=== PATIENT | female | born 1945 | race Two or more races ===

== ENCOUNTER 2024-10-13 08:53 | Inpatient (IN) | payer OTHER ==
[~2024-10-13] VITALS: Ht 167.6 cm; Wt 105.6 kg
[~2024-10-13 08:53] MED LIST: ATEN-60 OR; GLIP10TA9 OR; LEVEMIR SC; METF-372 OR; PIOG15TA38 OR; SIMV40TA18 OR; TIMOLOL; TRAVATAN; [UNRECOGNIZED DRUG - OTHER]
--- NOTE | 2024-10-13 09:32 | ED.PDOC ---
GI ASSESSMENT HPI Comments 79 y/o F, SHEN presents to the ED for CC of rectal bleeding. Patient states, that she has been experiencing rectal bleeding x1day. Patient relays, that she had [id number] of diarrhea with specs of blood yesterday (10/12/24). Patient comments, that this morning sanitary pad was soaked in bright red blood; believes to be from rectum. Patient endorses, using excessive strain when having a bowel movement. Patient denies fever, chills, melena, abdominal pain, nausea, or vomiting. No other symptoms or modifying factors present at this time. Chief Complaint: GI Bleed Time Seen by MD: 09:20 Primary Care Provider: Anai WARD Reviewed Notes: Nurses Notes, Medications, Allergies Allergies: Coded Allergies: NO KNOWN ALLERGIES (Unverified , 07/29/10) Home Meds Reported Medications Pioglitazone Hydrochloride (Actos) 15 Mg Tab, 15 MG OR DA 02/04/11 Insulin Detemir (Levemir) Inj, 20 SC HS 07/29/10 Insulin Detemir (Levemir) Inj, 10 UNITS SC QA 07/29/10 [Travatan] No Conflict Check, 1 APPLIC BID 07/29/10 [Timolol] No Conflict Check, 1 APPLIC BID 07/29/10 Atenolol (Atenolol) 25 Mg Tab, 25 MG OR QA 07/29/10 Glipizide (Glipizide) 10 Mg Tab, 10 MG OR BID 07/29/10 [Bemazepril] No Conflict Check, 40 MG QA 07/29/10 Simvastatin (Simvastatin) 40 Mg Tab, 40 MG OR HS 07/29/10 Metformin Hydrochloride (Metformin Hcl) 1,000 Mg Tab, 1000 MG OR BID 07/29/10 Information Source: Patient, Emergency Med Personnel Mode of Arrival: EMS Timing: Hours Duration: Since onset Prehospital treatment: None Quality: None Vomitus: None Stool: Watery Severity: Moderate Recent: None Recent Hx of: None Pain Location: None Modifying Factors: Nothing Associated sign and symptoms: Diarrhea, Blood in Stool Past Medical History PAST MEDICAL HISTORY: Denies Surgical History: Denies all surgeries COMMISSARY CLERK History: Unknown Family History Family History: Unknown Social History Smoker: Non-Smoker Alcohol: Denies ETOH Use Drugs: Denies Drug Use Lives In: Home Constitutional: denies: chills, diaphoresis, fatigue, fever, malaise, sweats, weakness, others EENTM: denies: blurred vision, double vision, ear bleeding, ear discharge, ear drainage, ear pain, ear ringing, eye pain, eye redness, hearing loss, mouth pain, mouth swelling, nasal discharge, nose bleeding, nose congestion, nose pain, photophobia, tearing, throat pain, throat swelling, voice changes, others Respiratory: denies: cough, hemoptysis, orthopnea, SOB at rest, shortness of breath, SOB with excertion, stridor, wheezing, others Cardiovascular: denies: chest pain, dizzy spells, diaphoresis, Dyspnea on exertion, edema, irregular heart beat, left arm pain, lightheadedness, palpitations, PND, syncope, others Gastrointestinal: reports: blood streaked bowels; denies: abdomen distended, abdominal pain, constipated, diarrhea, dysphagia, difficulty swallowing, hematemesis, melena, nausea, poor appetite, poor fluid intake, rectal bleeding, rectal pain, vomiting, others Genitourinary: denies: abnormal vagina bleeding, burning, dyspareunia, dysuria, flank pain, frequency, hematuria, incontinence, pain, , vagina discharge, urgency, others Neurological: denies: dizziness, fainting, headache, left sided numbness, left sided weakness, numbness, paresthesia, pre-existing deficit, right sided numbness, right sided weakness, seizure, speech problems, tingling, tremors, weakness, others Musculoskeletal: reports: back pain; denies: gout, joint pain, joint swelling, muscle pain, muscle stiffness, neck pain, others Integumetry: denies: bruises, change in color, change in hair/nails, dryness, laceration, lesions, lumps, rash, wounds, others Allergic/Immunocompromised: denies: Difficulty Healing, Frequent Infections, Hives, Itching, others Hematologic/Lymphatic: denies: anemia, blood clots, easy bleeding, easy bruising, swollen glands, others Endocrine: denies: excessive hunger, excessive sweating, excessive thirst, excessive urination, flushing, intolerance to cold, intolerance to heat, unexplained weight gain, unexplained weight loss, others Psychiatric: denies: anxiety, bipolar disorder, depression, hopeless, panic disorder, schizophrenia, sleepless, suicidal, others All Other Systems: Reviewed and Negative Physical Exam General Appearance: No Apparent Distress, Obese HEENT: Normal ENT Inspection, Pharynx Normal Neck: Full Range of Motion, Non-Tender, Normal, Normal Inspection Respiratory: Chest Non-Tender, Lungs Clear, No Accessory Muscle Use, No Respir atory Distress, Normal Breath Sounds Cardiovascular: No Edema, No Murmur, No Gallop, Normal Peripheral Pulses, Regular Rate/Rhythm Breast Exam: Deferred Gastrointestinal: No Organomegaly, Non Tender, No Pulsatile Mass, Normal Bowel Sounds, Soft Genitalia: Deferred Pelvic: Deferred Rectal: Deferred Extremities: Normal inspection Musculoskeletal : Apperance: Normal Neurologic: Alert, No Motor Deficits, Normal Affect, Normal Mood, No Sensory Deficits Cerebellar Function: Normal Reflexes: Normal Skin: Dry, Normal Color, Warm Lymphatic: No Adenopathy EKG EKG : Pulse Rate (adult): 98 Antlers: Normal Cardiac Rhythm: ST Block: None Hypertrophy: None ST: Normal Was a procedure done? Was a procedure done?: No GI differential Dx Differential Diagnosis: Bowel Obstruction, Constipation, Gastritis/PUD, Gastroenteritis, GI hemorrhage X-Ray, Labs, Meds, VS Vital Signs Date Time Temp Pulse Resp B/P (MAP) Pulse Ox O2 Delivery O2 Flow Rate FiO2 10/13/24 10:29 97.8 101 20 159/52 (87) 100 97.8 10/13/24 10:27 101 20 100 Room Air* 0 21 10/13/24 09:34 98 10/13/24 09:03 98.3 105 18 114/67 (83) 96 98.3 10/13/24 08:56 98 Lab Test 10/13/24 09:57 Range/Units White Blood Count 11.9 H 4.4-10.8 10^3/uL Red Blood Count 4.50 4.0-5.20 10^6/uL Hemoglobin 12.7 12.2-16.2 g/dL Hematocrit 37.8 36.0-46.0 % Mean Corpuscular Volume 84.0 80.0-100.0 fL Mean Corpuscular Hemoglobin 28.1 28.0-32.0 pg Mean Corpuscular Hemoglobin Concent 33.5 32.0-36.0 g/dL Red Cell Distribution Width 14.4 H 11.8-14.3 % Platelet Count 241 140-450 10^3/uL Mean Platelet Volume 8.7 6.9-10.8 fL Neutrophils (%) (Auto) 83.2 H 37.0-80.0 % Lymphocytes (%) (Auto) 10.4 10.0-50.0 % Monocytes (%) (Auto) 5.7 0.0-12.0 % Eosinophils (%) (Auto) 0.4 0.0-7.0 % Basophils (%) (Auto) 0.3 0.0-2.0 % Neutrophils # (Auto) 9.9 H 1.6-8.6 10 ^3/uL Lymphocytes # (Auto) 1.2 0.4-5.4 10 ^3/uL Monocytes # (Auto) 0.7 0-1.3 10 ^3/uL Eosinophils # (Auto) 0.1 0-0.8 10 ^3/uL Basophils # (Auto) 0 0-0.2 10 ^3/uL Nucleated Red Blood Cells 0.1 % Prothrombin Time 10.8 9.3-11.8 sec Prothrombin Time INR 1.02 0.9-1.15 Activated Partial Thromboplast Time 24.4 L 24.5-34.5 SEC Sodium Level 143 136-145 mmol/L Potassium Level 4.0 3.5-5.1 mmol/L Chloride Level 109 H 98-107 mmol/L Carbon Dioxide Level 27 20-31 mmol/L Anion Gap 7 5-15 Blood Urea Nitrogen 27 H 9-23 mg/dL Creatinine 1.55 H 0.550-1.02 mg/dL Glomerular Filtration Rate Calc 34 >90 mL/min BUN/Creatinine Ratio 17.4 10.0-20.0 Serum Glucose 177 H 74-106 mg/dL Calcium Level 9.6 8.7-10.4 mg/dL Total Bilirubin 0.7 0.2-1.0 mg/dL Aspartate Amino Transferase (AST) 15 13-40 U/L Alanine Aminotransferase (ALT) Pending Alkaline Phosphatase 128 H 46-116 U/L Total Protein 6.8 5.7-8.2 g/dL Albumin 4.2 3.2-4.8 g/dL X-Ray, Labs, Meds, VS Comment This 79-year-old female presents to emergency room secondary to rectal bleeding. Here, the patient was noted to have renal failure.. Considering the copious amounts of blood she describes x1 day and her renal failure, I will admit the patient for further workup and management. Time of 1ST Reevaluation: 09:50 Reevaluation 1ST: Unchanged Patient Education/Counseling: Diagnosis, Treatment Family Education/Counseling: No Family Present Departure 1 Departure Time of Disposition: 11:00 Impression: Primary Impression: Rectal bleeding Additional Impressions: Dehydration Renal failure Disposition: ADMITTED INPATIENT Condition: Serious Critical Care Note Critical Care Time?: No Stability Stability form required: No Heart Score Heart Score: Heart Score Response (Comments) Value History N/A 0 EKG N/A 0 Age N/A 0 Risk Factors N/A 0 Troponin N/A 0 Total 0 I personally scribed for LIVE CLEMENTS MD ([email or web address]) on 10/13/24 at 09:32. Electronically submitted by Leslie Kenny ([email or web address]). I personally scribed for LIVE CLEMENTS MD ([email or web address]) on 10/13/24 at 09:34. Electronically submitted by Leslie Kenny ([email or web address]). LIVE CLEMENTS MD Oct 13, 2024 09:32
[2024-10-13 10:11] LABS: Basophils # (auto) 0 10 ^3/uL (0-0.2); Basophils % (auto) 0.3 % (0.0-2.0); Eosinophils # (auto) 0.1 10 ^3/uL (0-0.8); Eosinophils % (auto) 0.4 % (0.0-7.0); Hematocrit 37.8 % (36.0-46.0); Hemoglobin 12.7 g/dL (12.2-16.2); Lymphocytes # (auto) 1.2 10 ^3/uL (0.4-5.4); Lymphocytes % (auto) 10.4 % (10.0-50.0); Mean Corpuscular Hemoglobin 28.1 pg (28.0-32.0); Mean Corpuscular Hgb Conc. 33.5 g/dL (32.0-36.0); Monocytes # (auto) 0.7 10 ^3/uL (0-1.3); Monocytes % (auto) 5.7 % (0.0-12.0); Neutrophils # (auto) 9.9 10 ^3/uL (1.6-8.6); Neutrophils % (auto) 83.2 % (37.0-80.0); Nucleated Red Blood Cells % 0.1 %; Platelet Count (auto) 241 10^3/uL (140-450); Red Cell Distribution Width 14.4 % (11.8-14.3); White Blood Cell 11.9 10^3/uL (4.4-10.8)
[2024-10-13 10:27] VITALS: PULSE 101; RESP 20; O2SAT 100
[2024-10-13 10:28] LABS: INR 1.02 (0.9-1.15); Partial Thromboplastin Time 24.4 SEC (24.5-34.5); Prothrombin Time 10.8 sec (9.3-11.8)
[2024-10-13 10:38] LABS: Albumin 4.2 g/dL (3.2-4.8); Anion Gap 7 (5-15); Aspartate Aminotransferase 15 U/L (13-40); BUN/Creatinine Ratio 17.4 (10.0-20.0); Bilirubin, Total 0.7 mg/dL (0.2-1.0); Calcium 9.6 mg/dL (8.7-10.4); Carbon Dioxide 27 mmol/L (20-31); Sodium 143 mmol/L (136-145); Total Protein 6.8 g/dL (5.7-8.2)
[2024-10-13 10:48] LABS: Alkaline Phosphatase 128 U/L (46-116); Blood Urea Nitrogen 27 mg/dL (9-23); Chloride 109 mmol/L (98-107); Glucose 177 mg/dL (74-106)
[2024-10-13 11:16] LABS: Alanine Aminotransferase 15 U/L (7-40)
[2024-10-13 13:40] VITALS: RESP 18
[2024-10-13] MEDS: MORPHINE SULFATE 4 MG/ML SYR/VIAL IV ONE (15:12)
[2024-10-13] MEDS: ONDANSETRON HCL 4 MG/2 ML VIAL IV ONE (15:12)
--- NOTE | 2024-10-13 17:01 | DVH ---
Exam: CT CT AB PEL WO CON-NO ORAL OR IV History: abd pain Comparison Study: None TECHNIQUE: Multidetector CT of the abdomen and pelvis was performed from lung bases to pubic symphysi s. Imaging was performed without IV contrast. Axial, coronal, and sagittal multiplanar reformats were obtained from the axial data set by the technologist. RADIATION DOSE: DLP 929.71 mGy.cm; CTDI vol 20.2 mGy. Findings: Lungs: The lung bases are clear. Heart: No cardiomegaly or pericardial effusion. Liver: Unremarkable. Gallbladder: Cholelithiasis without evidence of acute cholecystitis. Spleen: Unremarkable Pancreas: Unremarkable Adrenals: Unremarkable Kidneys: Nonobstructive left nephrolithiasis. GI tract: Diverticulosis without evidence of acute diverticulitis. Moderate wall thickening of the de scending colon with mild inflammatory changes. : Unremarkable. Vasculature: Moderate aortoiliac atherosclerosis. Lymphadenopathy: Absent Peritoneum: No ascites Musculoskeletal: Moderate multilevel degenerative changes of the thoracolumbar spine. L4/L5 anterior and posterior spinal fusion. Soft tissues: Unremarkable Impression: 1. Moderate wall thickening of the descending colon with mild inflammatory changes. Correlate for an infectious/inflammatory colitis. 2. Diverticulosis without evidence acute diverticulitis. 3. Cholelithiasis without evidence of acute cholecystitis.
[2024-10-13] MEDS ORDERED: DEXTROSE (50%) 50ML SYRG IV PRN (18:00)
[2024-10-13] MEDS ORDERED: NITROGLYCERIN 0.4 MG SL TAB SL PRN (18:00)
[2024-10-13] MEDS ORDERED: ACETAMINOPHEN 325 MG TAB PO PRN (18:00)
[2024-10-13] MEDS ORDERED: ONDANSETRON HCL 4 MG/2 ML VIAL IV PRN (18:00)
[2024-10-13] MEDS ORDERED: MORPHINE SULFATE INJ 2 MG/ml SYRG IV PRN (18:00)
--- NOTE | 2024-10-13 18:04 | DVHHP2 ---
History of Present Illness Reason for Visit: Rectal bleeding History of Present Illness 79-year-old female with a history of diabetes: Hypertension: Dyslipidemia comes with a chief complaint of rectal bleeding of bright red blood for 2 days There is no associated abdominal pain No nausea or vomiting or diarrhea Patient is usually constipated, she was straining for a bowel movement 2 days ago and that is when the bleeding started When I asked her about her home situation, the patient has started crying and said that since her less than a year ago she has been living by herself and she has not been active and has not been eating very well because she does not cook for herself much and that she has been constipated since that time, She had 2 colonoscopies before, last 1 about 4 or 5 years ago Cardiovascular: HTN, hyperipidemia GI: Constipation, Diverticulosis Psych: Depression Endocrine: Diabetes Review of Systems Gastrointestinal: Constipation, Hematochezia Allergies: Coded Allergies: NO KNOWN ALLERGIES (Unverified , 07/29/10) Medications Current Medications Medications Dose Ordered Sig/Miah Route Start Time Stop Time Status Last Admin Dose Admin Nitroglycerin 0.4 mg Q5MINP PRN SL 10/13/24 18:00 UNV Morphine Sulfate 2 mg Q30M PRN IV 10/13/24 18:00 UNV Ondansetron HCl 4 mg Q4HPRN PRN IV 10/13/24 18:00 UNV Acetaminophen 650 mg Q6HP PRN PO 10/13/24 18:00 UNV Pantoprazole Sodium 40 mg BID IV 10/13/24 22:00 UNV Exam Vital Signs Vital Signs Date Time Temp Pulse Resp B/P (MAP) Pulse Ox O2 Delivery O2 Flow Rate FiO2 10/13/24 16:00 114 12 120/76 10/13/24 16:00 96 10/13/24 13:50 97.7 97.7 10/13/24 13:40 Room Air* 0 21 General Appearance: Alert, Oriented X3, Cooperative, No acute distress Respiratory: Clear to auscultation, Normal air movement Cardiovascular: Regular rate, Normal S1, Normal S2, No murmurs Abdominal: Normal bowel sounds, Soft, No tenderness, No hepatospenomegaly Extremities: No edema Labs/Xrays Labs Test 10/13/24 09:57 Range/Units White Blood Count 11.9 H 4.4-10.8 10^3/uL Red Blood Count 4.50 4.0-5.20 10^6/uL Hemoglobin 12.7 12.2-16.2 g/dL Hematocrit 37.8 36.0-46.0 % Mean Corpuscular Volume 84.0 80.0-100.0 fL Mean Corpuscular Hemoglobin 28.1 28.0-32.0 pg Mean Corpuscular Hemoglobin Concent 33.5 32.0-36.0 g/dL Red Cell Distribution Width 14.4 H 11.8-14.3 % Platelet Count 241 140-450 10^3/uL Mean Platelet Volume 8.7 6.9-10.8 fL Neutrophils (%) (Auto) 83.2 H 37.0-80.0 % Lymphocytes (%) (Auto) 10.4 10.0-50.0 % Monocytes (%) (Auto) 5.7 0.0-12.0 % Eosinophils (%) (Auto) 0.4 0.0-7.0 % Basophils (%) (Auto) 0.3 0.0-2.0 % Neutrophils # (Auto) 9.9 H 1.6-8.6 10 ^3/uL Lymphocytes # (Auto) 1.2 0.4-5.4 10 ^3/uL Monocytes # (Auto) 0.7 0-1.3 10 ^3/uL Eosinophils # (Auto) 0.1 0-0.8 10 ^3/uL Basophils # (Auto) 0 0-0.2 10 ^3/uL Nucleated Red Blood Cells 0.1 % Prothrombin Time 10.8 9.3-11.8 sec Prothrombin Time INR 1.02 0.9-1.15 Activated Partial Thromboplast Time 24.4 L 24.5-34.5 SEC Sodium Level 143 136-145 mmol/L Potassium Level 4.0 3.5-5.1 mmol/L Chloride Level 109 H 98-107 mmol/L Carbon Dioxide Level 27 20-31 mmol/L Anion Gap 7 5-15 Blood Urea Nitrogen 27 H 9-23 mg/dL Creatinine 1.55 H 0.550-1.02 mg/dL Glomerular Filtration Rate Calc 34 >90 mL/min BUN/Creatinine Ratio 17.4 10.0-20.0 Serum Glucose 177 H 74-106 mg/dL Calcium Level 9.6 8.7-10.4 mg/dL Total Bilirubin 0.7 0.2-1.0 mg/dL Aspartate Amino Transferase (AST) 15 13-40 U/L Alanine Aminotransferase (ALT) 15 7-40 U/L Alkaline Phosphatase 128 H 46-116 U/L Total Protein 6.8 5.7-8.2 g/dL Albumin 4.2 3.2-4.8 g/dL Assessment/Plan Assessment/Plan Rectal bleeding Acute colitis Diverticulosis with no diverticulitis Gallstones with no acute cholecystitis Hypertension Mixed hyperlipidemia Type 2 diabetes Depression 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 Dehydration Plan Admit to [facility] Clear liquid diet IV fluids IV antibiotics with Rocephin and Flagyl Get a stool sample for occult blood and C diff Accu-Cheks p.r.n. GI consult IV Protonix Monitor closely The rest of the management will depend on hospital course Full code Plan discussed with: Patient My Orders Orders - JOSE ADAN MD Procedure Category Date Status Time Admit ADMIT 10/13/24 Transmitted 17:52 Nitroglycerin [facility] 10/13/24 Logged Sublingual (Ntrostat 18:00 Morphine Sulfate [facility]A 10/13/24 Logged Injection 18:00 Stat Ekg For Chest [facility] 10/13/24 In Process Pain 17:52 Notify Of Changes [facility] 10/13/24 In Process From Base 17:52 Management Supervisor For [facility] 10/13/24 In Process 24 Hours 17:52 Emergency Dysrhythmia [facility] 10/13/24 In Process Protocol 17:52 Rhythm Strips Once [facility] 10/13/24 In Process Every Shift 17:52 Oxygen By Nasal RT 10/13/24 Transmitted Cannula 17:52 Clear Liq Diet DIET 10/13/24 Transmitted Dinner Sodium Chloride 0.9% PHA 10/13/24 Logged 18:00 Complete Blood Count LAB 10/14/24 Verified 04:00 Comprehensive LAB 10/14/24 Verified Metabolic Panel 04:00 Magnesium LAB 10/14/24 Verified 04:00 Lipase LAB 10/14/24 Verified 04:00 PTPTT LAB 10/14/24 Verified 04:00 Stool Occult Blood LAB 10/13/24 Logged 17:53 Thyroid Stimulating LAB 10/14/24 Verified Hormone 04:00 Urinalysis LAB 10/13/24 Logged 17:53 * Gi Dvh Inspector Experimental Assembly CONS 3/27/25 Transmitted 17:54 Clostridium Difficile ANJANA 10/13/24 Logged Toxin 17:54 Ondansetron Hcl PHA 10/13/24 Logged (Zofran) 18:00 Acetaminophen Tablet PHA 10/13/24 Logged (Tylenol Tablet) 18:00 Pantoprazole PHA 10/13/24 Logged (Protonix) 22:00 Ceftriaxone 1gm/50ml PHA 10/14/24 Logged D5w (Rocephin) 09:00 Ceftriaxone 1gm/50ml PHA 10/13/24 Logged D5w (Rocephin) 18:00 Metronidazole PHA 10/13/24 Logged 500mg/100ml (Flagyl 22:00 Glucose Blood PHA 10/13/24 Verified (Accu-Chek Comfort 22:00 Mild Sliding Scale PHA 10/13/24 Verified 22:00 Dextrose 50% Syringe PHA 10/13/24 Verified 18:00 Date of Service: Oct 13, 2024 Billing Provider: JOSE ADAN MD Common Visit Codes: NOT BILLABLE JOSE ADAN MD Oct 13, 2024 18:04
[2024-10-13] MEDS: SODIUM CHLORIDE 0.9% 1,000 ML IV ONE (18:35)
[2024-10-13] MEDS: cefTRIAXone 1GM/50ML D5W 50 ML IV ONE (18:40)
[2024-10-13 19:55] VITALS: PULSE 83; RESP 16; O2SAT 96
[2024-10-13] MEDS: PANTOPRAZOLE 40 MG/10 ML VIAL INJ IV SCH (20:58)
[2024-10-13] MEDS: metroNIDAZOLE 500MG/100ML 100 ML IV SCH (20:58)
[2024-10-13] MEDS: MORPHINE SULFATE INJ 2 MG/ml SYRG IV PRN (21:03)
[2024-10-13] MEDS: ACCU-CHEK COMFORT CURVE STRIP VI SCH (21:59)
[2024-10-13] MEDS: InsuLIN REG 1unit/0.01ml Soln (100units/ml) SC SCH (21:59)
[2024-10-13 22:35] VITALS: BP 140/58; PULSE 85; RESP 19; TEMP 97.7; O2SAT 98
[2024-10-13 23:17] LABS: Urine Bacteria None Seen /hpf (None Seen)
[2024-10-13 23:18] VITALS: BP 140/58; PULSE 85; RESP 19; TEMP 97.7; O2SAT 98
[2024-10-14] VITALS (7 sets, daily range): BP systolic 117–142; BP diastolic 46–61; PULSE 74–115; RESP 16–20; TEMP 97.3–98; O2SAT 89–98
[2024-10-14 00:29] LABS: Urine Blood Negative /uL (Negative); Urine Clarity Turbid (Clear); Urine Color Yellow (Yellow); Urine Mucus FEW (None Seen); Urine Protein, UAD TRACE (Negative); Urine Specific Gravity 1.022 (1.001-1.035); Urine Squamous Epithelial Cell MOD /hpf (<5); Urine Urobilinogen Normal (Negative); Urine WBC 4 /HPF (0-5); Urine pH 5.5 (5.0-9.0)
[2024-10-14] MEDS ORDERED: FURO40TA4 PO (00:51)
[2024-10-14] MEDS ORDERED: ATOR40TA52 PO (00:51)
[2024-10-14] MEDS ORDERED: LEVEMIR SC (00:51)
[2024-10-14] MEDS ORDERED: LATA0.008 EACHEYE (00:51)
[2024-10-14] MEDS ORDERED: AMLO1TAB22 PO (00:51)
[2024-10-14] MEDS ORDERED: CHOL20007 OR (00:51)
[2024-10-14] MEDS ORDERED: BENA-36 PO (00:51)
[2024-10-14] MEDS ORDERED: ALL100T PO (00:51)
[2024-10-14 05:36] LABS: Basophils # (auto) 0 10 ^3/uL (0-0.2); Basophils % (auto) 0.4 % (0.0-2.0); Eosinophils # (auto) 0.1 10 ^3/uL (0-0.8); Eosinophils % (auto) 1.5 % (0.0-7.0); Hematocrit 37.3 % (36.0-46.0); Lymphocytes # (auto) 1.5 10 ^3/uL (0.4-5.4); Lymphocytes % (auto) 16.4 % (10.0-50.0); Mean Corpuscular Hemoglobin 27.4 pg (28.0-32.0); Mean Corpuscular Hgb Conc. 32.1 g/dL (32.0-36.0); Mean Corpuscular Volume 85.3 fL (80.0-100.0); Monocytes # (auto) 0.6 10 ^3/uL (0-1.3); Monocytes % (auto) 6.7 % (0.0-12.0); Neutrophils # (auto) 6.7 10 ^3/uL (1.6-8.6); Nucleated Red Blood Cells % 0.1 %; Platelet Count (auto) 208 10^3/uL (140-450); Red Blood Cells 4.37 10^6/uL (4.0-5.20); Red Cell Distribution Width 14.4 % (11.8-14.3); White Blood Cell 8.9 10^3/uL (4.4-10.8)
[2024-10-14 06:03] LABS: Alanine Aminotransferase 13 U/L (7-40); Albumin 3.8 g/dL (3.2-4.8); Alkaline Phosphatase 108 U/L (46-116); Anion Gap 7 (5-15); Aspartate Aminotransferase 19 U/L (13-40); BUN/Creatinine Ratio 19.1 (10.0-20.0); Blood Urea Nitrogen 21 mg/dL (9-23); Calcium 9.1 mg/dL (8.7-10.4); Carbon Dioxide 29 mmol/L (20-31); Glucose 105 mg/dL (74-106); Lipase 46 U/L (12-53); Magnesium 1.8 mg/dL (1.6-2.6); Sodium 145 mmol/L (136-145); Total Protein 6.3 g/dL (5.7-8.2)
[2024-10-14 06:04] LABS: Bilirubin, Total 0.7 mg/dL (0.2-1.0)
[2024-10-14 06:20] LABS: INR 1.03 (0.9-1.15); Partial Thromboplastin Time 26.6 SEC (24.5-34.5); Prothrombin Time 10.9 sec (9.3-11.8)
[2024-10-14 06:22] LABS: Chloride 109 mmol/L (98-107)
[2024-10-14] MEDS: cefTRIAXone 1GM/50ML D5W 50 ML IV SCH (08:18)
--- NOTE | 2024-10-14 11:42 | DVHINCON2 ---
GI Consult Consult Note GI consult note Date of Consultation: 10/14/2024 Chief Complaint: Rectal bleed Referring Physician: Dr. Castro H&P: 79-year-old female admitted with rectal bleed x2 with bright red blood No abdominal pain. No nausea or vomiting. Patient admits to having loose stool for two days Prior to this patient was having symptoms of constipation and was straining to have a bowel movement patient feels this could have triggered the bleeding. No rectal pain. Denies history of hemorrhoids No recent antibiotic use. No recent travels Last colonoscopy five years ago [facility] two polyps removed Past Medical History: HTN, hyperlipidemia Constipation. Diverticulosis Depression Diabetes Past Surgical History: Social History: NO smoking, drinking ETOH and use of illegal drugs. Family History: Noncontributory Review of Systems: Constitutional: no fever, chill, weight loss HEENT: no eye pain, no hearing loss, no oral lesion, no scleral icterus Heart: no chest pain, no chest pressure Lung: no cough, no dyspnea with exertion Abdomen: see HPI Physical exam: General: NAD, AAOX3 Chest: lung saini clear to auscultation Heart: RRR, no murmur Abdomen: Mild-distended, no tenderness to palpation, +BS Labs: Labs Test 10/14/24 05:53 10/14/24 04:54 10/13/24 22:57 Range/Units POC Glucose 117 H 70-106 mg/dl White Blood Count 8.9 # 4.4-10.8 10^3/uL Red Blood Count 4.37 4.0-5.20 10^6/uL Hemoglobin 12.0 L 12.2-16.2 g/dL Hematocrit 37.3 36.0-46.0 % Mean Corpuscular Volume 85.3 80.0-100.0 fL Mean Corpuscular Hemoglobin 27.4 L 28.0-32.0 pg Mean Corpuscular Hemoglobin Concent 32.1 32.0-36.0 g/dL Red Cell Distribution Width 14.4 H 11.8-14.3 % Platelet Count 208 140-450 10^3/uL Mean Platelet Volume 9.0 6.9-10.8 fL Neutrophils (%) (Auto) 75.0 37.0-80.0 % Lymphocytes (%) (Auto) 16.4 10.0-50.0 % Monocytes (%) (Auto) 6.7 0.0-12.0 % Eosinophils (%) (Auto) 1.5 0.0-7.0 % Basophils (%) (Auto) 0.4 0.0-2.0 % Neutrophils # (Auto) 6.7 1.6-8.6 10 ^3/uL Lymphocytes # (Auto) 1.5 0.4-5.4 10 ^3/uL Monocytes # (Auto) 0.6 0-1.3 10 ^3/uL Eosinophils # (Auto) 0.1 0-0.8 10 ^3/uL Basophils # (Auto) 0 0-0.2 10 ^3/uL Nucleated Red Blood Cells 0.1 % Prothrombin Time 10.9 9.3-11.8 sec Prothrombin Time INR 1.03 0.9-1.15 Activated Partial Thromboplast Time 26.6 24.5-34.5 SEC Sodium Level 145 136-145 mmol/L Potassium Level 4.0 3.5-5.1 mmol/L Chloride Level 109 H 98-107 mmol/L Carbon Dioxide Level 29 20-31 mmol/L Anion Gap 7 5-15 Blood Urea Nitrogen 21 9-23 mg/dL Creatinine 1.10 H 0.550-1.02 mg/dL Glomerular Filtration Rate Calc 51 >90 mL/min BUN/Creatinine Ratio 19.1 10.0-20.0 Serum Glucose 105 74-106 mg/dL Calcium Level 9.1 8.7-10.4 mg/dL Magnesium Level 1.8 1.6-2.6 mg/dL Total Bilirubin 0.7 0.2-1.0 mg/dL Aspartate Amino Transferase (AST) 19 13-40 U/L Alanine Aminotransferase (ALT) 13 7-40 U/L Alkaline Phosphatase 108 46-116 U/L Total Protein 6.3 5.7-8.2 g/dL Albumin 3.8 3.2-4.8 g/dL Lipase 46 12-53 U/L Thyroid Stimulating Hormone (TSH) 2.58 0.55-4.78 uIU/mL Urine Color Yellow Yellow Urine Clarity Turbid H Clear Urine pH 5.5 5.0-9.0 Urine Specific [place] 1.022 1.001-1.035 Urine Protein Trace H Negative Urine Ketones Negative Negative Urine Blood Negative Negative /uL Urine Nitrite Negative Negative Urine Bilirubin Negative Negative Urine Urobilinogen Normal Negative mg/dL Urine Leukocyte Esterase Negative Negative /uL Urine RBC 2 0 - 4 /hpf Urine Microscopic WBC 4 0-5 /HPF Urine Squamous Epithelial Cells Mod <5 /hpf Urine Bacteria None seen None Seen /hpf Urine Mucus Few None Seen Urine Glucose 1+ H Normal mg/dL Imaging: CT abdomen pelvis Impression: 1. Moderate wall thickening of the descending colon with mild inflammatory changes. Correlate for an infectious/inflammatory colitis. 2. Diverticulosis without evidence acute diverticulitis. 3. Cholelithiasis without evidence of acute cholecystitis. Assessment: Rectal bleeding Acute colitis Diverticulosis with no diverticulitis Gallstones with no acute cholecystitis Plan: Discussed with Dr. Whitman Monitor labs Stool for C diff, bacterial culture, WBC Continue antibiotics Symptomatic treatment recommended at this time We will continue to follow this patient Thank you for this consult Date of Service: Oct 14, 2024 Billing Provider: CRISSY TANNER Common Visit Codes: CONSULT ONLY Consultation Codes: [id number] CONSULT <45MIN CRISSY TANNER Oct 14, 2024 11:42
--- NOTE | 2024-10-14 15:44 | DVHPN2 ---
Subjective No abdominal pain No bowel movements since admission No rectal bleeding Changes from previous H/P or p: Changes Gastrointestinal: Constipation, Hematochezia Objective Vitals Vital Signs Date Time Temp Pulse Resp B/P (MAP) Pulse Ox O2 Delivery O2 Flow Rate FiO2 10/14/24 13:00 97.3 79 18 123/46 (71) 89 97.3 10/14/24 08:05 Room Air* 0 21 Intake/Output Intake and Output 10/14/24 07:00 Intake Total 450 ml Output Total 250 ml Balance 200 ml Intake Oral 300 ml IV Total 150 ml Output Urine Total 250 ml General Appearance: Alert, Oriented X3, Cooperative, No acute distress Lungs: Clear to auscultation, Normal air movement Cardiovascular: Regular rate, Normal S1, Normal S2 Abdomen: Normal bowel sounds, Soft, No tenderness Extremities: No edema Medications Current Medications Medications Dose Ordered Sig/Miah Route Start Time Stop Time Status Last Admin Dose Admin Nitroglycerin 0.4 mg Q5MINP PRN SL 10/13/24 18:00 Morphine Sulfate 2 mg Q30M PRN IV 10/13/24 18:00 Ondansetron HCl 4 mg Q4HPRN PRN IV 10/13/24 18:00 Acetaminophen 650 mg Q6HP PRN PO 10/13/24 18:00 Pantoprazole Sodium 40 mg BID IV 10/13/24 22:00 10/14/24 09:33 40 MG Ceftriaxone Sodium 50 ml @ 100 mls/hr DAILY@09 IV 10/14/24 09:00 10/14/24 08:18 100 MLS/HR Metronidazole 100 ml @ 100 mls/hr Q8HR IV 10/13/24 22:00 10/14/24 13:27 100 MLS/HR Diagnostic Test (Pha) 1 strip ACHS 10/13/24 22:00 10/14/24 11:33 1 STRIP Insulin Human Regular ACHS SC 10/13/24 22:00 10/14/24 11:45 3 UNITS Dextrose 50 ml UD PRN IV 10/13/24 18:00 Morphine Sulfate 1 mg Q4HP PRN IV 10/13/24 18:15 10/13/24 21:03 1 MG Laboratory Results Laboratory Tests 10/14/24 04:54 Chemistry Test 10/14/24 04:54 Albumin 3.8 g/dL (3.2-4.8) Calcium Level 9.1 mg/dL (8.7-10.4) Magnesium Level 1.8 mg/dL (1.6-2.6) Total Protein 6.3 g/dL (5.7-8.2) Coagulation Test 10/14/24 04:54 Prothrombin Time 10.9 sec (9.3-11.8) Prothrombin Time INR 1.03 (0.9-1.15) Activated Partial Thromboplast Time 26.6 SEC (24.5-34.5) Lipid panel Test 10/14/24 04:54 Lipase 46 U/L (12-53) LFT Test 10/14/24 04:54 Alanine Aminotransferase (ALT) 13 U/L (7-40) Alkaline Phosphatase 108 U/L (46-116) Aspartate Amino Transferase (AST) 19 U/L (13-40) Total Bilirubin 0.7 mg/dL (0.2-1.0) HgA1c, TSH Test 10/14/24 04:54 Thyroid Stimulating Hormone (TSH) 2.58 uIU/mL (0.55-4.78) Urinalysis Test 10/13/24 22:57 Urine Color Yellow (Yellow) Urine Clarity Turbid (Clear) H Urine pH 5.5 (5.0-9.0) Urine Specific [place] 1.022 (1.001-1.035) Urine Protein Trace (Negative) H Urine Ketones Negative (Negative) Urine Blood Negative /uL (Negative) Urine Nitrite Negative (Negative) Urine Bilirubin Negative (Negative) Urine Urobilinogen Normal mg/dL (Negative) Urine Leukocyte Esterase Negative /uL (Negative) Urine RBC 2 /hpf (0 - 4) Urine Microscopic WBC 4 /HPF (0-5) Urine Squamous Epithelial Cells Mod /hpf (<5) Urine Bacteria None seen /hpf (None Seen) Urine Mucus Few (None Seen) Urine Glucose 1+ mg/dL (Normal) H Assessment/Plan Assessment/Plan Rectal bleeding Acute colitis Diverticulosis with no diverticulitis Gallstones with no acute cholecystitis Hypertension Mixed hyperlipidemia Type 2 diabetes Depression 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 GI consult IV Protonix Monitor closely The rest of the management will depend on hospital course Full code 10/14/2024: Advance diet to soft Continue IV fluids Continue IV antibiotics No diarrhea to check for C diff Monitor overnight closely The rest of the management will depend on hospital course Full code Plan discussed with: Patient My Orders Orders - JOSE ADAN MD Procedure Category Date Status Time Admit ADMIT 10/13/24 Transmitted 17:52 Nitroglycerin PHA 10/13/24 In Process Sublingual (Ntrostat 18:00 Morphine Sulfate PHA 10/13/24 In Process Injection 18:00 Stat Ekg For Chest RAISSA 10/13/24 In Process Pain 17:52 Notify Md Of Changes RAISSA 10/13/24 In Process From Base 17:52 Emergency Dysrhythmia RAISSA 10/13/24 In Process Protocol 17:52 Rhythm Strips Once RAISSA 10/13/24 In Process Every Shift 17:52 Oxygen By Nasal RT 10/13/24 Transmitted Cannula 17:52 Clear Liq Diet DIET 10/13/24 Transmitted Dinner Stool Occult Blood LAB 10/13/24 Logged 17:53 * Gi Dvh Rag Cutting Machine Feeder CONS 10/13/24 Transmitted 17:54 Clostridium Difficile ANJANA 10/13/24 Logged Toxin 17:54 Ondansetron Hcl PHA 10/13/24 In Process (Zofran) 18:00 Acetaminophen Tablet PHA 10/13/24 In Process (Tylenol Tablet) 18:00 Pantoprazole PHA 10/13/24 In Process (Protonix) 22:00 Ceftriaxone 1gm/50ml PHA 10/14/24 In Process D5w (Rocephin) 09:00 Metronidazole PHA 10/13/24 In Process 500mg/100ml (Flagyl 22:00 Glucose Blood PHA 10/13/24 In Process (Accu-Chek Comfort 22:00 Insulin R (Human) PHA 10/13/24 In Process (Insulin R) 22:00 Dextrose 50% Syringe PHA 10/13/24 In Process 18:00 Morphine Sulfate PHA 10/13/24 In Process Injection 18:15 Date of Service: Oct 14, 2024 Billing Provider: JOSE ADAN MD Common Visit Codes: NOT BILLABLE JOSE ADAN MD Oct 14, 2024 15:44
--- NOTE | 2024-10-14 19:32 | ECG ---
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
[2024-10-15 01:00] VITALS: BP 136/60; PULSE 87; RESP 16; TEMP 98.6; O2SAT 97
[2024-10-15 05:03] VITALS: BP 115/49; PULSE 96; RESP 16; TEMP 98.4; O2SAT 95
[2024-10-15 07:30] VITALS: PULSE 88; RESP 17; O2SAT 92
[2024-10-15 09:00] VITALS: BP 114/52; PULSE 88; RESP 17; TEMP 98.5; O2SAT 92
--- NOTE | 2024-10-15 11:33 | ECG ---
[facility] Test Date: 2024-10-14 Test Time: 08:29:56 Pat Name: BEATRICE CASTAÑEDA Department: Respiratoy Room: 0231 A Gender: F Ops Manager: GOPI MCKEON : 1945 Requested By: JOSE ADAN Order Number: [id number] Reading MD: Clovis Hutton Measurements Intervals [place] Rate: 82 P: -6 AR: 194 QRS: -11 QRSD: 89 T: -1 QT: 390 QTc: 456 Interpretive Statements Sinus rhythm Inferior infarct, old Anterior infarct, old Electronically Signed On 10-19-2024 20:51:16 PDT by Clovis Hutton Please click the below link to view image of tracing.
[2024-10-15 12:54] VITALS: BP 144/65; PULSE 94; RESP 19; TEMP 98; O2SAT 96
[2024-10-15 13:01] LABS: Basophils # (auto) 0.1 10 ^3/uL (0-0.2); Basophils % (auto) 0.6 % (0.0-2.0); Eosinophils # (auto) 0 10 ^3/uL (0-0.8); Eosinophils % (auto) 0.2 % (0.0-7.0); Hematocrit 36.1 % (36.0-46.0); Lymphocytes # (auto) 1.3 10 ^3/uL (0.4-5.4); Lymphocytes % (auto) 11.7 % (10.0-50.0); Mean Corpuscular Hemoglobin 27.8 pg (28.0-32.0); Mean Corpuscular Hgb Conc. 33.1 g/dL (32.0-36.0); Monocytes # (auto) 0.8 10 ^3/uL (0-1.3); Monocytes % (auto) 7.2 % (0.0-12.0); Neutrophils # (auto) 8.7 10 ^3/uL (1.6-8.6); Neutrophils % (auto) 80.3 % (37.0-80.0); Platelet Count (auto) 202 10^3/uL (140-450); Red Cell Distribution Width 14.5 % (11.8-14.3); White Blood Cell 10.8 10^3/uL (4.4-10.8)
[2024-10-15 13:20] LABS: Alanine Aminotransferase 14 U/L (7-40); Alkaline Phosphatase 108 U/L (46-116); Calcium 9.4 mg/dL (8.7-10.4); Carbon Dioxide 30 mmol/L (20-31); Chloride 104 mmol/L (98-107); Potassium 4.4 mmol/L (3.5-5.1)
[2024-10-15 13:21] LABS: Anion Gap 6 (5-15); Aspartate Aminotransferase 24 U/L (13-40); BUN/Creatinine Ratio 15.3 (10.0-20.0); Bilirubin, Total 0.6 mg/dL (0.2-1.0); Blood Urea Nitrogen 19 mg/dL (9-23); Sodium 140 mmol/L (136-145); Total Protein 6.8 g/dL (5.7-8.2)
--- NOTE | 2024-10-15 13:28 | DVHDS2 ---
Discharge Summary Date of Admission Oct 13, 2024 at 17:52 Date of Discharge: Oct 15, 2024 Labs/Diagnostic Data: Laboratory Results Test 10/15/24 12:49 10/15/24 11:25 10/14/24 04:54 10/13/24 22:57 White Blood Count 10.8 10^3/uL (4.4-10.8) Red Blood Count 4.30 10^6/uL (4.0-5.20) Hemoglobin 12.0 g/dL (12.2-16.2) Hematocrit 36.1 % (36.0-46.0) Mean Corpuscular Volume 84.0 fL (80.0-100.0) Mean Corpuscular Hemoglobin 27.8 pg (28.0-32.0) Mean Corpuscular Hemoglobin Concent 33.1 g/dL (32.0-36.0) Red Cell Distribution Width 14.5 % (11.8-14.3) Platelet Count 202 10^3/uL (140-450) Mean Platelet Volume 8.8 fL (6.9-10.8) Neutrophils (%) (Auto) 80.3 % (37.0-80.0) Lymphocytes (%) (Auto) 11.7 % (10.0-50.0) Monocytes (%) (Auto) 7.2 % (0.0-12.0) Eosinophils (%) (Auto) 0.2 % (0.0-7.0) Basophils (%) (Auto) 0.6 % (0.0-2.0) Neutrophils # (Auto) 8.7 10 ^3/uL (1.6-8.6) Lymphocytes # (Auto) 1.3 10 ^3/uL (0.4-5.4) Monocytes # (Auto) 0.8 10 ^3/uL (0-1.3) Eosinophils # (Auto) 0 10 ^3/uL (0-0.8) Basophils # (Auto) 0.1 10 ^3/uL (0-0.2) Nucleated Red Blood Cells 0.0 % POC Glucose 259 mg/dl (70-106) Prothrombin Time 10.9 sec (9.3-11.8) Prothrombin Time INR 1.03 (0.9-1.15) Activated Partial Thromboplast Time 26.6 SEC (24.5-34.5) Lipase 46 U/L (12-53) Thyroid Stimulating Hormone (TSH) 2.58 uIU/mL (0.55-4.78) Urine Color Yellow (Yellow) Urine Clarity Turbid (Clear) Urine pH 5.5 (5.0-9.0) Urine Specific [place] 1.022 (1.001-1.035) Urine Protein Trace (Negative) Urine Ketones Negative (Negative) Urine Blood Negative /uL (Negative) Urine Nitrite Negative (Negative) Urine Bilirubin Negative (Negative) Urine Urobilinogen Normal mg/dL (Negative) Urine Leukocyte Esterase Negative /uL (Negative) Urine RBC 2 /hpf (0 - 4) Urine Microscopic WBC 4 /HPF (0-5) Urine Squamous Epithelial Cells Mod /hpf (<5) Urine Bacteria None seen /hpf (None Seen) Urine Mucus Few (None Seen) Urine Glucose 1+ mg/dL (Normal) Other Laboratory Tests 10/15/24 12:49 Brief Hx & Hospital Course: Final diagnoses: Rectal bleeding Acute colitis Diverticulosis with no diverticulitis Gallstones with no acute cholecystitis Hypertension Mixed hyperlipidemia Type 2 diabetes Depression 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 Dehydration 79-year-old female was admitted here for rectal bleeding CT scan of the abdomen showed acute colitis and diverticulosis and gallstones She had no abdominal pain She was given IV antibiotics Because of the bleeding we also want to 2 rule out C diff colitis however she never had a bowel movement after she came here She is mostly asymptomatic now Her hemoglobin remained stable There is no need for the C diff testing anymore The patient is stable for discharge She will be given 7 days course of Cipro and Flagyl and resume other home medications At home she was taking Imodium as needed for diarrhea but it gets her constipated after she takes it and therefore she was instructed to stop taking that Follow up with her primary care physician as soon as possible and resume other home medications Condition at Discharge: Stable Final Diagnosis/Problems List Rectal bleeding Acute colitis Diverticulosis with no diverticulitis Gallstones with no acute cholecystitis Hypertension Mixed hyperlipidemia Type 2 diabetes Depression 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 Patient was counseled about treatment plan, medications, possible side effects, patientverbalized understanding. All questions were answered to the best of my ability. 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
[2024-10-15] MEDS ORDERED: CIPR-173 PO (13:29)
[2024-10-15] MEDS ORDERED: METR-344 PO (13:29)
[2024-10-15 13:59] LABS: Glucose 243 mg/dL (74-106); Magnesium 1.6 mg/dL (1.6-2.6)
[2024-10-15 15:07] VITALS: TEMP 36.7
--- NOTE | 2024-10-15 22:07 | DVHPN2 ---
Progress Note - Dictate Date Seen: Oct 15, 2024 (Late entry Patient seen at 2:00 p.m.) Medical Necessity Reason Pt with a Central, PICC or Fol: No Subjective Patient is out of bed to chair She denies any nausea vomiting or GI bleeding She is tolerating a diet vital signs Vital Sign Date Time Temp Pulse Resp B/P (MAP) Pulse Ox O2 Delivery O2 Flow Rate FiO2 10/15/24 15:07 36.7 10/15/24 12:54 94 19 144/65 (91) 96 10/15/24 07:30 Room Air* 0 21 Total Intake and Output 10/14/24 10/14/24 10/15/24 15:00 23:00 07:00 Intake Total 150 ml 700 ml 500 ml Balance 150 ml 700 ml 500 ml objective General: NAD, AAOX3 Chest: lung saini clear to auscultation Heart: RRR, no murmur Abdomen: Mild-distended, no tenderness to palpation, +BS laboratory and microbiology Laboratory Tests 10/15/24 12:49 Test 10/15/24 12:49 Range/Units Serum Glucose 243 H 74-106 mg/dL Problems(with codes): (1) Rectal bleeding (2) Renal failure (3) Dehydration Prognosis Plan Advance diet as tolerated Increase fluid and fiber intake Outpatient follow up with GI Services in 4-6 weeks to discuss elective colonoscopy Once again thank you for allowing me to participate in the care of this patient Plan discussed with: Patient PABLO DOLAN MD Oct 15, 2024 22:07
== END 2024-10-15 16:00 | disposition home or self-care (01) | DRG 391 ==
LOC: ER 08:53 → EDUNIT# 08:53 → EDBD 08:53 → OVERFLOW 17:52 → EAST 22:36
PROVIDERS: ADMIT Internal Medicine Geriatric Medicine; ATTEND Internal Medicine Geriatric Medicine
DX: A09 Infectious gastroenteritis and colitis, unspecified (principal); N17.0 Acute kidney failure with tubular necrosis; K80.20 Calculus of gallbladder without cholecystitis without obstruction; F32.A Depression, unspecified; I10 Essential (primary) hypertension; E11.9 Type 2 diabetes mellitus without complications; K57.30 Diverticulosis of large intestine without perforation or abscess without bleeding; E78.2 Mixed hyperlipidemia; E86.0 Dehydration; K59.00 Constipation, unspecified
CPT/HCPCS: 36415; 74176; 80053; 81001; 82962; 83690; 83735; 84443; 85025; 85610; 85730; 93005; 96365; 96367; 96372; 96375; 96376; G0378; J1815; J2405; J2470; J3490